=== PATIENT | female | born 1965 | race Caucasian/White ===

== ENCOUNTER 2017-08-07 20:00 | Emergency (ER) | payer BC ==
--- NOTE | 2017-08-07 20:16 | EDM.PDOC ---
ED HPI GENERAL MEDICAL PROBLEM - General Chief Complaint: Back Pain or Injury Stated Complaint: BACK PAIN Time Seen by Provider: 08/07/17 20:10 Source of Information: Reports: Patient. Denies: Old Records (No [facility] records available) History Limitations: Reports: No Limitations - History of Present Illness INITIAL COMMENTS - FREE TEXT/NARRATIVE: The patient was brought to the emergency room via private automobile by her daughter for evaluation of refractory persistent two-week history of 6/10 bilateral low back pain and spasms with radiation to the buttocks bilaterally and adductor regions bilaterally. She did have a possible mild twisting injury prior to onset of the above symptoms with no previous history of chronic significant low back pain. Symptoms have been refractory to heating pads, BenGay , and OTC NSAIDs with 400 mg of ibuprofen taken at noon today. The patient denies any chest pain/pressure, heart flutter, dizziness, orthostasis, orthopnea , diaphoresis, paresthesias, recent decreased exercise tolerance, or any other anginal-type symptoms. No recent history of abdominal pain, heartburn, nausea, diarrhea, melena, gross hematochezia, or any food intolerance, including fatty foods, etc.. She denies any colic, gross hematuria, or other UTI symptoms. Patient was apparently evaluated a couple weeks ago by her regular provider with questionable borderline UTI, however antibody therapy was given at that time. The patient also denies any recent fever, cough, wheezing, dyspnea, etc.. No history of previous significant fall, paresthesias, leg weakness, neurological deficits, etc. Onset: Unknown/Unsure Duration: Week(s): (As above), Constant, Getting Worse Location: Reports: Back, Lower Extremity, Left, Lower Extremity, Right, Radiates to (As above). 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 Denies: Glaucoma, Hard of Hearing, Macular Degeneration, Retinal Detachment Other HEENT History: Patient wears glasses Cardiovascular History: Reports: Arrhythmia, Other (See Below). Denies: Aneurysm, Blood Clots/VTE/DVT, CAD, Heart Failure, Heart Murmur, High Cholesterol, Hypertension, Syncope Other Cardiovascular History: Unknown type of previous benign arrhythmia Respiratory History: Reports: Intubation, Previous. Denies: Asthma, COPD, Intubation, Difficult, PE, Pneumothorax, Sleep Apnea Gastrointestinal History: Reports: GERD, Other (See Below). Denies: Celiac Disease, Cholelithiasis, Colon Polyp, Diverticulosis, Gastritis, GI Bleed, Hepatitis, Hiatal Hernia, Inflammatory Bowel Disease, Irritable Bowel Syndrome, Jaundice, Pancreatitis, PUD Genitourinary History: Denies: Acute Renal Failure, Chronic Renal Insuffiency, Renal Calculus, STD, Urinary Incontinence, UTI, Recurrent [employer] History: Reports: Dysfunctional Uterine Bleeding, Fibroids, , Spontaneous . Denies: Endometriosis : 6 Para: 3 LMP (Approximate): Other (See Below) Other OB/BYN History: Surgical menopause as below secondary to dysfunctional uterine bleeding. SAB 3 during first trimester with D&C 2 required. C- sections 3. Otherwise, full term deliveries without complications during pregnancies or deliveries. Fibrocystic breast disease of the negative biopsies as below Musculoskeletal History: Reports: Arthritis, Back Pain, Chronic, Osteoarthritis. Denies: Amputation, Fracture, Gout, Neck Pain, Chronic, Osteoporosis, RA, SLE Neurological History: Reports: Concussion, Headaches, Chronic, Head Trauma, Migraines, Other (See Below). Denies: Cerebral Aneurysms, CVA, MS, Neuropathy, Peripheral, Parkinson's, Seizure, TIA Other Neuro History: Head concussion the Psychiatric History: Reports: Anxiety, Depression, Other (See Below). Denies: Abuse, Victim of, ADD, ADHD, Addiction, Psych Hospitalization(s), PTSD, Suicide Attempt, Suicidal Ideation Other Psychiatric History: Seasonal affect disorder Endocrine/Metabolic History: Denies: Diabetes, Gestational, Diabetes, Type I, Diabetes, Type II, Diabetes Mellitus, Type 3c, Hypothyroidism, IDDM Hematologic History: Reports: None. Denies: Anemia, Blood Transfusion(s), Iron Deficiency Immunologic History: Reports: None. Denies: AIDS, HIV, SLE Oncologic (Cancer) History: Reports: None. Denies: Basal Cell Carcinoma, Breast , Cervix, Hodgkin's Lymphoma, Leukemia, Lymphoma, Malignant Melanoma, Non- Hodgkin's Lymphoma, Squamous Cell Carcinoma Dermatologic History: Reports: None. Denies: Eczema, Melanoma - Infectious Disease History Infectious Disease History: Reports: Chicken Pox, Measles, Mumps. Denies: C- Difficile, Meningitis, Mononucleosis, MRSA, Pertussis (Whooping Cough), Rheumatic Fever, Rubella, Scarlet Fever, Shingles, VRE - Past Surgical History Head Surgeries/Procedures: Reports: None HEENT Surgical History: Reports: Cataract Surgery, Oral Surgery, Other (See Below). Denies: Adenoidectomy, Eye Surgery, Laser Surgery, LASIK, Myringotomy w Tube(s), Naso-Sinus Surgery, Tonsillectomy Other HEENT Surgeries/Procedures: Bilateral cataract surgery at age 49. Multiple teeth extractions including complete upper dentures. [place] teeth extraction 4 in her 20s. Cardiovascular Surgical History: Reports: None. Denies: Varicose Respiratory Surgical History: Reports: None. Denies: Thoracentesis GI Surgical History: Reports: None, Colostomy. Denies: Appendectomy, Cholecystectomy, Colonoscopy, EGD, Hernia, Abdominal, Hernia, Inguinal, Hernia Repair/Other Female Surgical History: Reports: Breast Biopsy, D&C, Hysterectomy, Salpingo- Oophorectomy, Tubal Ligation, Other (See Below) Other Female Surgeries/Procedures: Previous history of 2 right and 2 left breast biopsies for benign disease in the . Bilateral tubal ligation in 1992. Subsequent complete hysterectomy and bilateral salpingo-oophorectomy at age 50 secondary to uterine fibroids. D&Cs 2 secondary to SABs as above. Endocrine Surgical History: Reports: None. Denies: Thyroid Biopsy Neurological Surgical History: Reports: None. Denies: C-Spine, Discectomy, Laminectomy, Lumbar Spine, Sacral Spine, Spinal Fusion, Thoracic Spine, Vertebroplasty Musculoskeletal Surgical History: Reports: None. Denies: Arthroscopic Knee, Arthroscopic Procedure, Carpal Tunnel, Ganglion Cyst, ORIF, Shoulder Surgery Oncologic Surgical History: Reports: None Dermatological Surgical History: Reports: None - Past Imaging History Past Imaging History: Reports: Event Monitor (In the ), Mammogram (Last in about 2007) Social & Family History - Tobacco Use Smoking Status *Q: Current Every Day Smoker Tobacco Use Within Last Twelve Months: Cigarettes Years of Tobacco use: 41 Packs/Tins Daily: 1 Packs/Tins Daily Comment: Smoking at age 11 with average is 12 packs per day Used Tobacco, but Quit: No Smoking Cessation Information Provided To Patient: Yes Second Hand Smoke Exposure: Yes Source of Second Hand Smoke Exposure: Daughter smokes Second Hand Smoke Education Provided: Yes - Caffeine Use Caffeine Use: Reports: Coffee (40 ounces per day), Soda (2 L per day). Denies: Energy Drinks, Tea - Alcohol Use Alcohol Use History: No Days Per Week of Alcohol Use: 0 (No current alcohol use with DWI at age 20. No history of alcohol abuse, treatment, etc.) Number of Drinks Per Day: 0 Total Drinks Per Week: 0 Alcohol Use in Last Twelve Months: No - Recreational Drug Use Recreational Drug Use: No Drug Use in Last 12 Months: No Recreational Drug Type: Denies: Amphetamines (Speed), Cocaine, Heroin, Inhalants (Glues, Solvents, Aerosols), LSD (Acid), Marijuana/Hashish, Methamphetamine, Morphine, Oxycodone - Living Situation & Occupation Living situation: Reports: with Family (Daughter, 2 grandchildren) Occupation: Employed ([employer]) ED ROS GENERAL - Review of Systems Review Of Systems: ROS reveals no pertinent complaints other than HPI. ED EXAM, GENERAL - Physical Exam Exam: See Below Exam Limited By: No Limitations General Appearance: Alert, WD/WN, No Apparent Distress Head: Atraumatic, Normocephalic Neck: Normal Inspection, Supple, Non-Tender, Full Range of Motion. No: Lymphadenopathy (L), Lymphadenopathy (R), Thyromegaly Respiratory/Chest: No Respiratory Distress, Lungs Clear, Normal Breath Sounds, No Accessory Muscle Use, Chest Non-Tender. No: Pleural Rub, Retractions Cardiovascular: Normal Peripheral Pulses, Regular Rate, Rhythm, No Edema, No Gallop, No JVD, No Murmur, No Rub. No: Gallop/S3, Gallop/S4, Friction Rub Peripheral Pulses: 2+: Radial (L), Radial (R) GI/Abdominal: Normal Bowel Sounds, Soft, Non-Tender, No Organomegaly, No Distention, No Abnormal Bruit, No Mass, Pelvis Stable. No: Guarding (Female) Exam: Deferred Rectal (Female) Exam: Deferred Back Exam: Decreased Range of Motion (Secondary to low back pain and muscle spasms), Muscle Spasm (As below), Paraspinal Tenderness (Moderate by palpation in the mid to lower lumbar regions bilaterally with additional moderate spasms in this area). No: CVA Tenderness (L), CVA Tenderness (R) Extremities: Normal Inspection, Normal Range of Motion, Non-Tender, No Pedal Edema, Normal Capillary Refill. No: Hiram's Sign Neurological: Alert, Oriented, CN II-XII Intact, Normal Cognition, Normal Gait, No Motor/Sensory Deficits Psychiatric: Normal Affect, Normal Mood Skin Exam: Warm, Dry, Intact, Normal Color, No Rash, Stud(s) (Left nasal stud), Tattoo(s) (Multiple including lumbar region). No: Diaphoretic, Ecchymosis, Wound/Incision Lymphatic: No Adenopathy Course - Vital Signs Last Recorded V/S: Vital Signs - 24 hr 08/07/17 20:30 Temperature [ 37.3 C Temporal] Pulse, 79 Peripheral [ Pulse Oximetry] Respiratory 16 Rate Blood Pressure 110/60 [Left Upper Arm ] O2 Sat by Pulse 98 Oximetry - Orders/Labs/Meds Orders: Active Orders 24 hr Category Date Time Status Lumbar Spine 2 or 3V [CR] Stat Exams 08/07/17 20:16 Ordered Obtain Past Medical Record [OM.PC] Routine Oth 08/07/17 20:16 Active Labs: None Meds: None - Radiology Interpretation Free Text/Narrative:: X-rays of the lumbar spine, 3 views, shows evidence of moderate osteoarthritic and osteoporotic changes with decreased lordosis in the lumbar spine but no evidence of fracture, dislocation, etc. Departure - Departure Time of Disposition: 21:00 Disposition: Home, Self-Care 01 Condition: Good Clinical Impression: Peptic reflux disease, Mixed anxiety depressive disorder, Tobacco abuse counseling, Osteoporosis, Allergic rhinitis Osteoarthritis Qualifiers: Osteoarthritis location: multiple joints Osteoarthritis type: primary Qualified Code(s): M15.0 - Primary generalized (osteo)arthritis Low back pain Qualifiers: Chronicity: acute Back pain laterality: bilateral Sciatica presence: with sciatica Sciatica laterality: bilateral sciatica Qualified Code(s): M54.42 - Lumbago with sciatica, left side; M54.41 - Lumbago with sciatica, right side - Discharge Information Instructions: Sciatica, [id number], Back Pain, Adult, [id number] Referrals: Nani Neely PA-C [Primary Care Provider] - Forms: ED Department Discharge Additional Instructions: 1. Followup with your regular provider in 10-14 days as directed. Further treatment and evaluation, including possible physical therapy, CT scan, etc. as discussed depending on your symptoms at that time 2. BenGay or equivalent, heating pad, and/or ice packs as directed. 3. Sedation precautions with Flexeril 4. Tylenol 650 mg by mouth every 4 hours and/or OTC ibuprofen 2-3 tabs by mouth every 6 hours with food as directed./needed. 5. Activity as tolerated/directed 6. OK to have planned chiropractic treatments 7. Strongly recommend update yearly examinations, including recommended DEXA scan, colonoscopy, mammogram, etc. DOMENICO as discussed 8. Stop all tobacco use DOMENICO as directed/per provided information and consider contacting Quit LIne, etc.. 9. Decrease caffeine intake as discussed - Problem List & Annotations (1) Low back pain SNOMED Code(s): 113232642 Code(s): M54.5 - LOW BACK PAIN Status: Acute Priority: High Annotation/ Comment:: The patient is currently on leave of absence from [facility] secondary to a in the family with no work excuse required by her history. Symptomatic relief with further evaluation and treatment as per discharge instructions. Activity restrictions, etc. discussed. Patient plans to go to her chiropractor later this week. Qualifiers: Chronicity: acute Back pain laterality: bilateral Sciatica presence: with sciatica Sciatica laterality: bilateral sciatica Qualified Code(s): M54.42 - Lumbago with sciatica, left side; M54.41 - Lumbago with sciatica, right side (2) Osteoarthritis SNOMED Code(s): 490005844 Code(s): M19.90 - UNSPECIFIED OSTEOARTHRITIS, UNSPECIFIED SITE Status: Chronic Priority: Medium Annotation/Comment:: Otherwise stable by history Qualifiers: Osteoarthritis location: multiple joints Osteoarthritis type: primary Qualified Code(s): M15.0 - Primary generalized (osteo)arthritis (3) Osteoporosis SNOMED Code(s): 46708518 Code(s): M81.0 - AGE-RELATED OSTEOPOROSIS W/O CURRENT PATHOLOGICAL FRACTURE Status: Chronic Priority: High Onset Date: 08/07/17 Annotation/Comment: : Newly diagnosed by x-rays today. DEXA scan strongly advisable DOMENICO with this extensively discussed with the patient and her daughter. Qualifiers: Osteoporosis type: unspecified Presence of current pathological fracture: unspecified Qualified Code(s): M81.0 - Age-related osteoporosis without current pathological fracture (4) Tobacco abuse counseling SNOMED Code(s): 102074008, [id number], [id number] Code(s): Z71.6 - TOBACCO ABUSE COUNSELING Status: Chronic Priority: Medium Annotation/Comment:: Stop all tobacco use DOMENICO as directed/per provided information and consider contacting Quit LIne, etc.. (5) Mixed anxiety depressive disorder SNOMED Code(s): 447484036 Code(s): F41.8 - OTHER SPECIFIED ANXIETY DISORDERS Status: Chronic Priority: Medium Annotation/Comment:: Stable by history with no current medical therapy (6) Peptic reflux disease SNOMED Code(s): 905764664 Code(s): K21.9 - GASTRO-ESOPHAGEAL REFLUX DISEASE WITHOUT ESOPHAGITIS Status: Chronic Priority: Medium Annotation/Comment:: Stable by history with no current medical therapy (7) Allergic rhinitis SNOMED Code(s): 71296580 Code(s): J30.9 - ALLERGIC RHINITIS, UNSPECIFIED Status: Chronic Priority : Medium Annotation/Comment:: No current medical therapy required Qualifiers: Allergic rhinitis trigger: unspecified Allergic rhinitis seasonality: seasonal Qualified Code(s): J30.2 - Other seasonal allergic rhinitis - Problem List Review Problem List Initiated/Reviewed/Updated: Yes - My Orders Last 24 Hours: My Active Orders 08/07/17 20:16 Lumbar Spine 2 or 3V [CR] Stat Obtain Past Medical Record [OM.PC] Routine - Assessment/Plan Last 24 Hours: My Active Orders 08/07/17 20:16 Lumbar Spine 2 or 3V [CR] Stat Obtain Past Medical Record [OM.PC] Routine Assessment:: As above Plan: As above. Extensive precautions were given to the patient, who is in agreement with the treatment plan. See Patient Instructions for further treatment and plan.
== END 2017-08-07 21:00 | disposition home or self-care (01) ==
LOC: LL.ED 20:00
DX: M54.42 Lumbago with sciatica, left side (principal); M54.41 Lumbago with sciatica, right side; F41.8 Other specified anxiety disorders; K21.9 Gastro-esophageal reflux disease without esophagitis; M81.0 Age-related osteoporosis without current pathological fracture; M15.0 Primary generalized (osteo)arthritis; E78.00 Pure hypercholesterolemia, unspecified; I10 Essential (primary) hypertension; I50.9 Heart failure, unspecified; F17.210 Nicotine dependence, cigarettes, uncomplicated; Z71.6 Tobacco abuse counseling
CPT/HCPCS: 72100; 99283

== ENCOUNTER 2017-09-24 04:27 | Emergency (ER) | payer BC, OTHER ==
[2017-09-24 05:22] LABS: CHLORIDE,CL 105 mmol/L (98-107); SODIUM,NA 141 mmol/L (136-145)
--- NOTE | 2017-09-24 05:30 | EDM.PDOC ---
ED HPI GENERAL MEDICAL PROBLEM - General Chief Complaint: Chest Pain Stated Complaint: @jorge l loading tailgates, cart tipped Time Seen by Provider: 09/24/17 05:12 Source of Information: Reports: Patient, Old Records ([facility] EMR. No paper hospital chart available.) History Limitations: Reports: No Limitations - History of Present Illness INITIAL COMMENTS - FREE TEXT/NARRATIVE: The patient was brought to the emergency room via transport vehicle from [facility] for evaluation of a chest wall contusion, which occurred at work at about 04:00 a.m. this morning. The patient was working with a cart carrying tailgates when the cart tipped over with one of the 150 pound tailgates falling directly on her chest with her right arm also pinned against the wall.. She was able to crawl out of the area of injury on her own however complains of 9-10/10 chest wall pain with only minimal right forearm discomfort. No history of head injury , change in mental status, loss of consciousness, neck/back pain, abdominal pain , dyspnea, etc.. The patient denies any other chest pain/pressure, heart flutter , dizziness, orthostasis, orthopnea, diaphoresis, paresthesias, recent decreased exercise tolerance, or any other anginal-type symptoms. No recent history of abdominal pain, heartburn, nausea, diarrhea, melena, gross hematochezia, or any food intolerance, including fatty foods, etc.. The patient also denies any recent fever, cough, wheezing, dyspnea, etc.. No history of recent headaches, visual changes, diplopia, or other change in neurological status. Onset: Today, Sudden Onset Date: 09/24/17 Onset Time: 04:00 Duration: Constant Location: Reports: Chest, Upper Extremity, Right. Denies: Head, Face, Neck, Abdomen, Back, Pelvis, Upper Extremity, Left, Lower Extremity, Left, Lower Extremity, Right, Radiates to Quality: Reports: Ache, Sharp Severity: Severe Improves with: Reports: Rest Worsens with: Reports: Movement (Inspiration) Context: Reports: Trauma Associated Symptoms: Reports: Chest Pain. Denies: Confusion, Cough, Diaphoresis , Fever/Chills, Headaches, Loss of Appetite, Malaise, Nausea/Vomiting, Seizure, Shortness of Breath, Syncope, Weakness Treatments EMBEDDED NURSE: Reports: Other (see below) (None) Chest Pain Score (Numeric/FACES): 10 - Related Data Allergies Allergy/AdvReac Type Severity Reaction Status Date / Time No Known Allergies Allergy Verified 09/24/17 04:34 Home Meds: Home Meds traZODone HCl [Trazodone HCl] 50 mg PO BEDTIME 08/07/17 [History] Past Medical History HEENT History: Reports: Allergic Rhinitis, Cataract, Impaired Vision, Other ( See Below). Denies: Glaucoma, Hard of Hearing, Macular Degeneration, Retinal Detachment Other HEENT History: Patient wears glasses Cardiovascular History: Reports: Arrhythmia, Other (See Below). Denies: Aneurysm, Blood Clots/VTE/DVT, CAD, Heart Murmur, High Cholesterol, Hypertension , UT, Syncope Other Cardiovascular History: Unknown type of previous benign arrhythmia. Chronic hypotension. Respiratory History: Reports: COPD, Intubation, Previous, Other (See Below). Denies: Asthma, Intubation, Difficult, PE, Pneumothorax, Sleep Apnea Other Respiratory History: COPD by chest x-ray with no current medical therapy Gastrointestinal History: Reports: GERD. Denies: Celiac Disease, Cholelithiasis , Chronic Constipation, Chronic Diarrhea, Colon Polyp, Fecal Incontinence, Gastritis, GI Bleed, Hepatitis, Hiatal Hernia, Inflammatory Bowel Disease, Irritable Bowel Syndrome, Jaundice, Pancreatitis, PUD Genitourinary History: Reports: None. Denies: Acute Renal Failure, Chronic Renal Insuffiency, Renal Calculus, Retention, Urinary, STD, Urinary Incontinence [employer] G History: Reports: Dysfunctional Uterine Bleeding, Fibroids, , Spontaneous . Denies: Endometriosis : 6 Para: 3 Other OB/BYN History: Surgical menopause as below secondary to dysfunctional uterine bleeding. SAB 3 during first trimester with D&C 2 required. C- sections 3. Otherwise, full term deliveries without complications during pregnancies or deliveries. Fibrocystic breast disease of the negative biopsies as below Musculoskeletal History: Reports: Arthritis, Back Pain, Chronic, Osteoarthritis. Denies: Amputation, Fracture, Gout, Neck Pain, Chronic, Osteoporosis, RA, SLE Neurological History: Reports: Concussion, Headaches, Chronic, Head Trauma, Migraines, Other (See Below). Denies: CVA, MS, Neuropathy, Peripheral, Parkinson's, Seizure, TIA Other Neuro History: Head concussion the Psychiatric History: Reports: Anxiety, Depression, Other (See Below). Denies: Abuse, Victim of, ADD, ADHD, Addiction, Psych Hospitalization(s), PTSD, Suicide Attempt, Suicidal Ideation Other Psychiatric History: Seasonal affect disorder Endocrine/Metabolic History: Denies: Diabetes, Gestational, Diabetes, Type I, Diabetes, Type II, Diabetes Mellitus, Type 3c, Hypothyroidism, IDDM, Osteoporosis Hematologic History: Reports: None. Denies: Anemia, Blood Transfusion(s), Iron Deficiency Immunologic History: Reports: None. Denies: AIDS, HIV, SLE Oncologic (Cancer) History: Reports: None. Denies: Basal Cell Carcinoma, Breast , Cervix, Hodgkin's Lymphoma, Leukemia, Lymphoma, Malignant Melanoma, Non- Hodgkin's Lymphoma, Ovarian, Squamous Cell Carcinoma, Uterine Dermatologic History: Reports: None. Denies: Eczema, Psoriasis - Infectious Disease History Infectious Disease History: Reports: Chicken Pox, Measles, Mumps. Denies: C- Difficile, Meningitis, Mononucleosis, MRSA, Pertussis (Whooping Cough), Rheumatic Fever, Rubella, Scarlet Fever, Shingles, TB, VRE - Past Surgical History Head Surgeries/Procedures: Reports: None HEENT Surgical History: Reports: Cataract Surgery, Oral Surgery, Other (See Below). Denies: Adenoidectomy, Eye Surgery, Laser Surgery, LASIK, Myringotomy w Tube(s), Naso-Sinus Surgery, Tonsillectomy Other HEENT Surgeries/Procedures: Bilateral cataract surgery at age 49. Multiple teeth extractions including complete upper dentures. [place] teeth extraction 4 in her 20s. Cardiovascular Surgical History: Reports: None. Denies: Varicose Respiratory Surgical History: Reports: None. Denies: Thoracentesis GI Surgical History: Reports: None. Denies: Appendectomy, Cholecystectomy, Colonoscopy, EGD, Hernia, Inguinal, Hernia Repair/Other, Polypectomy Female Surgical History: Reports: Breast Biopsy, Section, D&C, Hysterectomy, Salpingo-Oophorectomy, Tubal Ligation, Other (See Below) Other Female Surgeries/Procedures: Previous history of 2 right and 2 left breast biopsies for benign disease in the . Bilateral tubal ligation in 1992. Subsequent complete hysterectomy and bilateral salpingo-oophorectomy at age 50 secondary to uterine fibroids. D&Cs 2 secondary to SABs and C-sections 3 as above. Endocrine Surgical History: Reports: None. Denies: Thyroid Biopsy Neurological Surgical History: Reports: None. Denies: C-Spine, Discectomy, Laminectomy, Lumbar Spine, Sacral Spine, Spinal Fusion, Thoracic Spine, Vertebroplasty Musculoskeletal Surgical History: Reports: None. Denies: Arthroscopic Procedure , Carpal Tunnel, Ganglion Cyst, Joint Replacement, Nerve Relocation, ORIF, Shoulder Surgery Oncologic Surgical History: Reports: Biopsy of Breast, Other (See Below) Other Oncologic Surgeries/Procedures: Benign disease as above Dermatological Surgical History: Reports: None - Past Imaging History Past Imaging History: Reports: Event Monitor (In the ), Mammogram (Last in about 2007) Social & Family History - Family History Oncologic: Reports: Lung, Other (See Below) Other Oncologic Family History: Mother with fatal small cell carcinoma of the lung at age 69 with history of tobacco use - Tobacco Use Smoking Status *Q: Current Every Day Smoker Tobacco Use Within Last Twelve Months: Cigarettes Years of Tobacco use: 41 Packs/Tins Daily: 0.5 Packs/Tins Daily Comment: She started smoking at age 11 with average use of 12 packs per day Used Tobacco, but Quit: No Smoking Cessation Information Provided To Patient: Yes Second Hand Smoke Exposure: Yes Source of Second Hand Smoke Exposure: Daughter smokes Second Hand Smoke Education Provided: Yes - Caffeine Use Caffeine Use: Reports: Coffee (40 ounces per day), Soda (2 L per day). Denies: Energy Drinks, Tea - Alcohol Use Alcohol Use History: Yes Days Per Week of Alcohol Use: 0 Number of Drinks Per Day: 0 Number of Drinks Per Day Comment: DWI at age 20 with no current alcohol use or history of alcohol abuse, treatment, etc. Total Drinks Per Week: 0 Alcohol Use in Last Twelve Months: No - Recreational Drug Use Recreational Drug Use: No Drug Use in Last 12 Months: No Recreational Drug Type: Denies: Amphetamines (Speed), Cocaine, Heroin, Inhalants (Glues, Solvents, Aerosols), LSD (Acid), Marijuana/Hashish, Methamphetamine - Living Situation & Occupation Living situation: Reports: (2017), with Family (Daughter, 2 grandchildren) Occupation: Employed ([employer]) ED ROS GENERAL - Review of Systems Review Of Systems: ROS reveals no pertinent complaints other than HPI. ED EXAM, GENERAL - Physical Exam Exam: See Below Exam Limited By: No Limitations General Appearance: Alert, WD/WN, No Apparent Distress Eye Exam: Bilateral Eye: EOMI, Normal Inspection (No nystagmus. Patient wearing glasses), PERRL Ears: Normal External Exam, Normal Canal, Hearing Grossly Normal, Normal TMs Nose: Normal Inspection, Normal Mucosa, No Blood Throat/Mouth: Normal Inspection, Normal Lips, Normal Gums, Normal Oropharynx, Normal Voice, No Airway Compromise. No: Normal Teeth (Complete upper dentures) , Dysphagia, Perioral Cyanosis Head: Atraumatic, Normocephalic. No: Facial Swelling, Facial Tenderness, Sinus Tenderness Neck: Normal Inspection, Supple, Non-Tender, Full Range of Motion. No: Lymphadenopathy (L), Lymphadenopathy (R), Thyromegaly Respiratory/Chest: No Respiratory Distress, Lungs Clear, Normal Breath Sounds, No Accessory Muscle Use. No: Chest Non-Tender (Mild to moderate Midsternal patient. The crepitation or deformity), Pleural Rub, Retractions Cardiovascular: Normal Peripheral Pulses, Regular Rate, Rhythm, No Edema, No Gallop, No JVD, No Murmur, No Rub Peripheral Pulses: 2+: Radial (L), Radial (R) GI/Abdominal: Normal Bowel Sounds, Soft, Non-Tender, No Organomegaly, No Distention, No Abnormal Bruit, No Mass, Pelvis Stable (Female) Exam: Deferred Rectal (Female) Exam: Deferred Back Exam: Normal Inspection, Full Range of Motion. No: CVA Tenderness (L), CVA Tenderness (R), Muscle Spasm Extremities: Normal Inspection, Normal Range of Motion, Non-Tender, No Pedal Edema, Normal Capillary Refill, Other (Right forearm shows no evidence of injury with no significant localized tenderness, etc.). No: Hiram's Sign Neurological: Alert, Oriented, CN II-XII Intact, Normal Cognition, Normal Gait, No Motor/Sensory Deficits Psychiatric: Anxious (Borderline), Depressed Mood (Mild to moderate and somewhat confrontational) Skin Exam: Stud(s) (Multiple), Tattoo(s) (Multiple) Lymphatic: No Adenopathy EKG INTERPRETATION EKG Date: 09/24/17 Time: 04:51 Rhythm: NSR Rate (Beats/Min): 85 [place]: Normal P-Wave: Present (Pulmonary hypertension by EKG) QRS: Normal (QRS interval of 0.08 seconds with T-wave inversion in lead V1) QT: Normal VA/PQ Interval: 0.13 seconds with no delta waves noted Comparison: NA - No Prior EKG EKG Interpretation Comments: 1. No acute ischemic changes 2. Short VA interval 3. Pulmonary hypertension by EKG Course - Vital Signs Last Recorded V/S: Last Vital Signs Temp 37.2 C 09/24/17 05:52 Pulse 73 09/24/17 06:03 Resp 14 09/24/17 06:03 BP 112/65 09/24/17 06:03 Pulse Ox 100 09/24/17 06:03 Vital Signs - 24 hr 09/24/17 09/24/17 05:52 06:03 Temperature [ 37.2 C Temporal] Pulse, 66 73 Peripheral [ Left Pulse Oximetry] Respiratory 14 14 Rate Blood Pressure 117/56 L 112/65 [Left Upper Arm ] O2 Sat by Pulse 100 100 Oximetry See Trauma Sheet - Orders/Labs/Meds Orders: Active Orders 24 hr Category Date Time Status Chest 1V Frontal [CR] Routine Exams 09/24/17 Taken Forearm 2V Rt [CR] Stat Exams 09/24/17 05:20 Ordered Sternum Min 2V [CR] Stat Exams 09/24/17 05:20 Ordered Labs: Laboratory Tests 09/24/17 09/24/17 09/24/17 Range/Units 04:55 04:55 04:55 WBC 5.3 (4.0-10.2) K/uL RBC 4.01 (3.77-5.09) M/uL Hgb 13.0 (11.7-15.5) g/dL Hct 38.5 (34.0-46.0) % MCV 96.0 (84.0-98.0) fL MCH 32.4 (28.2-33.3) pg MCHC 33.8 (31.7-36.0) g/dL RDW 12.3 (11.2-14.1) % Plt Count 200 (150-350) K/uL Neut % (Auto) 48.3 (45.0-80.0) % Lymph % (Auto) 34.6 (10.0-50.0) % Morrison % (Auto) 13.7 (2.0-14.0) % Eos % (Auto) 2.8 (0.0-5.0) % Baso % (Auto) 0.6 (0.0-2.0) % Neut # (Auto) 2.57 (1.40-7.00) K/uL Lymph # (Auto) 1.84 (0.50-3.50) K/uL Morrison # (Auto) 0.73 (0.00-1.00) K/uL Eos # (Auto) 0.15 (0.00-0.50) K/uL Baso # (Auto) 0.03 (0.00-0.20) K/uL Sodium 141 (136-145) mmol/L Potassium 3.7 (3.5-5.1) mmol/L Chloride 105 (98-107) mmol/L Carbon Dioxide 26.9 (21.0-32.0) mmol/L BUN 15 (7-18) mg/dL Creatinine 0.65 (0.51-1.17) mg/dL Est Cr Clr Drug Dosing TNP Estimated GFR (MDRD) > 60 mL/min Glucose 83 (74-106) mg/dL Lactic Acid (0.4-2.0) mmol/L Calcium 9.0 (8.5-10.1) mg/dL Total Bilirubin 0.3 (0.2-1.0) mg/dL AST 20 (15-37) U/L ALT 18 (12-78) U/L Alkaline Phosphatase 119 H (46-116) IU/L Creatine Kinase 246 (26-308) U/L Creatine Kinase Index 0.7 (0.0-2.5) % CK-MB (CK-2) 1.60 (0.00-3.60) ng/mL Troponin I 0.000 (0.000-0.056) ng/mL Total Protein 7.6 (6.4-8.2) g/dL Albumin 3.8 (3.4-5.0) g/dL 09/24/17 Range/Units 04:55 WBC (4.0-10.2) K/uL RBC (3.77-5.09) M/uL Hgb (11.7-15.5) g/dL Hct (34.0-46.0) % MCV (84.0-98.0) fL MCH (28.2-33.3) pg MCHC (31.7-36.0) g/dL RDW (11.2-14.1) % Plt Count (150-350) K/uL Neut % (Auto) (45.0-80.0) % Lymph % (Auto) (10.0-50.0) % Morrison % (Auto) (2.0-14.0) % Eos % (Auto) (0.0-5.0) % Baso % (Auto) (0.0-2.0) % Neut # (Auto) (1.40-7.00) K/uL Lymph # (Auto) (0.50-3.50) K/uL Morrison # (Auto) (0.00-1.00) K/uL Eos # (Auto) (0.00-0.50) K/uL Baso # (Auto) (0.00-0.20) K/uL Sodium (136-145) mmol/L Potassium (3.5-5.1) mmol/L Chloride (98-107) mmol/L Carbon Dioxide (21.0-32.0) mmol/L BUN (7-18) mg/dL Creatinine (0.51-1.17) mg/dL Est Cr Clr Drug Dosing Estimated GFR (MDRD) mL/min Glucose (74-106) mg/dL Lactic Acid 1.3 (0.4-2.0) mmol/L Calcium (8.5-10.1) mg/dL Total Bilirubin (0.2-1.0) mg/dL AST (15-37) U/L ALT (12-78) U/L Alkaline Phosphatase (46-116) IU/L Creatine Kinase (26-308) U/L Creatine Kinase Index (0.0-2.5) % CK-MB (CK-2) (0.00-3.60) ng/mL Troponin I (0.000-0.056) ng/mL Total Protein (6.4-8.2) g/dL Albumin (3.4-5.0) g/dL Meds: None - Radiology Interpretation Free Text/Narrative:: Chest X-ray, portable, reveals stable unspecific right-sided pulmonary changes with radiologist recommending future CT scan of the chest for evaluation as a screen for pulmonary nodules. No acute changes present X-rays of the sternum, complete, shows no evidence of acute injury as per radiology report NOTE: Stat telephone reports requested from the radiology department at [facility] in [place] were not received with written reports received by fax X-rays of the right forearm, 2 views, shows no evidence of fracture. Departure - Departure Time of Disposition: 06:20 Disposition: Home, Self-Care 01 Condition: Good Clinical Impression: Trauma, Chest wall pain, Hypotension, Osteoarthritis, Peptic reflux disease, Mixed anxiety depressive disorder, Tobacco abuse counseling, Contusion, COPD ( chronic obstructive pulmonary disease) - Discharge Information Instructions: Chest Wall Pain, Hyoo-fv-Abab Referrals: Nani Neely PA-C [Primary Care Provider] - Forms: ED Department Discharge Additional Instructions: 1. Follow up with your regular provider in 10-14 days as needed, if symptoms persist. Bring these discharge instructions with you to that visit.. 2. Tylenol 650 mg by mouth every 4 hours and/or OTC ibuprofen 2-3 tabs by mouth every 6 hours with food as directed./needed. 3. BenGay or equivalent, heating pad, and/or ice packs as directed. 4. Stop all tobacco use DOMENICO as directed/per provided information and consider contacting Quit LIne, etc.. 5. Per recommendations from the radiologist and secondary to family history of a lung cancer and your history of tobacco abuse discuss with your regular provider DOMENICO recommended CT of the chest 6. Consider lung function tests, PFTs secondary to tobacco use history 7. Discuss with your regular provider update your routine health care including recommended colonoscopy, etc. 8. Immediately after this visit verify that your cellular telephone's voicemail has been activated and is empty. Also verify that your home telephone 's answering machine is operating properly and has space to receive messages. Note that it is sometimes necessary for us to be able to contact you at a later date to discuss your medical care. 9. Work excuse- See Form - Problem List & Annotations (1) Trauma SNOMED Code(s): 536715733 Code(s): T14.90XA - INJURY, UNSPECIFIED, INITIAL ENCOUNTER Status: Acute Priority: High Onset Date: 09/24/17 Annotation/Comment:: Trauma code called by emergency room nurse upon patient's arrival to the emergency room secondary to mechanism of injury. On-call physician could not be initially reached with E- med ordering the initial evaluations, including blood work, cardiac monitoring, portable chest x-ray, etc.. No evidence of cardiac arrhythmia by monitoring with no EKG changes, elevated cardiac enzymes, etc. Mostly sternal and minimal right forearm contusions. [employer] work excuse and Workmen's Compensation forms were completed. Symptomatic relief as per discharge instructions. Patient was some what confrontational refusing recommended work restrictions and insisting to go back to work after only 1 day off. (2) Chest wall pain SNOMED Code(s): 461295739 Code(s): R07.89 - OTHER CHEST PAIN Status: Acute Priority: High Onset Date: 09/24/17 Annotation/Comment:: Chest wall/Sternal pain secondary to contusion as above. Note negative x-rays. Symptomatic relief as per discharge instructions. (3) Contusion SNOMED Code(s): 460254585 Code(s): T14.8XXA - OTHER INJURY OF UNSPECIFIED BODY REGION, INITIAL ENCOUNTER Status: Acute Priority: High Onset Date: 09/24/17 Annotation/ Comment:: Minor right forearm contusion. Negative x-rays as above. Symptomatic relief as per discharge instructions. Qualifiers: Encounter type: initial encounter Contusion area: forearm Laterality: right Qualified Code(s): S50.11XA - Contusion of right forearm, initial encounter (4) Hypotension SNOMED Code(s): 30622203 Code(s): I95.9 - HYPOTENSION, UNSPECIFIED Status: Chronic Priority: Medium Annotation/Comment:: Chronic hypotension by patient history. Patient given a 1 L IV bolus of normal saline per orders from E-med with improved blood pressures prior to discharge. No evidence of significant bleeding, trauma, etc. as above. Qualifiers: Hypotension type: idiopathic hypotension Qualified Code(s): I95.0 - Idiopathic hypotension (5) COPD (chronic obstructive pulmonary disease) SNOMED Code(s): 70047678 Code(s): J44.9 - CHRONIC OBSTRUCTIVE PULMONARY DISEASE, UNSPECIFIED Status : Chronic Priority: Medium Annotation/Comment:: COPD by chest x-ray. PFTs recommended as per discharge instructions. No recent fever or bronchitic type symptoms. CT of the chest also recommended by the radiologist as per discharge instructions, however the patient is very resistant to this suggestion. Qualifiers: COPD type: emphysema Emphysema type: panlobular Qualified Code(s): J43.1 - Panlobular emphysema (6) Mixed anxiety depressive disorder SNOMED Code(s): 771545454 Code(s): F41.8 - OTHER SPECIFIED ANXIETY DISORDERS Status: Chronic Priority: Medium Annotation/Comment:: Stable by history however moderate control based on today's examination. Note recent of her mother with emotional support provided. Continue to observe closely by her regular provider with no current evidence of suicidal ideation, etc.. Patient somewhat confrontational concerning recommended update of her preventive health care, including colonoscopy, mammogram, PFTs, CT scan of the chest as above, etc. (7) Osteoarthritis SNOMED Code(s): 133543775 Code(s): M19.90 - UNSPECIFIED OSTEOARTHRITIS, UNSPECIFIED SITE Status: Chronic Priority: Medium Annotation/Comment:: Otherwise stable by history Qualifiers: Osteoarthritis location: multiple joints Osteoarthritis type: primary Qualified Code(s): M15.0 - Primary generalized (osteo)arthritis (8) Peptic reflux disease SNOMED Code(s): 839079963 Code(s): K21.9 - GASTRO-ESOPHAGEAL REFLUX DISEASE WITHOUT ESOPHAGITIS Status: Chronic Priority: Medium Annotation/Comment:: Stable by history with no current medical therapy (9) Tobacco abuse counseling SNOMED Code(s): 730983842, 169351270, 739803443 Code(s): Z71.6 - TOBACCO ABUSE COUNSELING Status: Chronic Priority: Medium Annotation/Comment:: Stop all tobacco use DOMENICO as directed/per provided information and consider contacting Quit LIne, etc.. Patient congratulated about trying to quit smoking. - Problem List Review Problem List Initiated/Reviewed/Updated: Yes - My Orders Last 24 Hours: My Active Orders 09/24/17 05:20 Forearm 2V Rt [CR] Stat Sternum Min 2V [CR] Stat - Assessment/Plan Last 24 Hours: My Active Orders 09/24/17 05:20 Forearm 2V Rt [CR] Stat Sternum Min 2V [CR] Stat Assessment:: As above Plan: As above. Extensive precautions were given to the patient, who is in agreement with the treatment plan. See Patient Instructions for further treatment and plan.
== END 2017-09-24 06:20 | disposition home or self-care (01) ==
LOC: LL.ED 04:27
DX: S20.211A Contusion of right front wall of thorax, initial encounter (principal); J44.9 Chronic obstructive pulmonary disease, unspecified; I95.9 Hypotension, unspecified; F41.8 Other specified anxiety disorders; M19.90 Unspecified osteoarthritis, unspecified site; K21.9 Gastro-esophageal reflux disease without esophagitis; W22.8XXA Striking against or struck by other objects, initial encounter; Z71.6 Tobacco abuse counseling; W20.8XXA Other cause of strike by thrown, projected or falling object, initial encounter
CPT/HCPCS: 36415; 71045; 71120; 73090-RT; 80053; 82550; 82553; 83605; 84484; 85025; 93005; 96360; 99285

== ENCOUNTER 2018-09-12 20:43 | Emergency (ER) | payer BC ==
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
[2018-09-12] MEDS ORDERED: Sodium Chloride 0.9% 10 ML Syringe FLUSH PRN (20:57)
[2018-09-12] MEDS ORDERED: Budesonide 0.5 MG/2 ML Neb Susp NEB ONE (20:57)
[2018-09-12] MEDS ORDERED: Albuterol/Ipratropium 3.0-0.5 MG/3 ML Neb Soln NEB ONE (20:57)
[2018-09-12 21:29] LABS: CHLORIDE,CL 106 mmol/L (98-107); SODIUM,NA 142 mmol/L (136-145)
[2018-09-12] MEDS ORDERED: methylPREDNISolone Acetate 80 MG/ML SDV IM ONE (22:51)
[2018-09-12] MEDS ORDERED: Dextromethorphan/guaiFENesin 600-30 MG Tab.ER PO ONE (22:51)
== END 2018-09-12 23:35 | disposition home or self-care (01) ==
LOC: LL.ED 20:43
DX: R04.0 Epistaxis (principal); J44.9 Chronic obstructive pulmonary disease, unspecified; J30.9 Allergic rhinitis, unspecified; N28.9 Disorder of kidney and ureter, unspecified; F41.8 Other specified anxiety disorders; K21.9 Gastro-esophageal reflux disease without esophagitis; Z71.6 Tobacco abuse counseling; Z79.899 Other long term (current) drug therapy
CPT/HCPCS: 30901; 30905; 36000; 36415; 71046; 80053; 83605; 83735; 85025; 85610; 85730; 87070; 87077; 87804; 96372; 99285-25; A9270-GY; J1040; J7620-GY

== ENCOUNTER 2022-11-15 07:36 | Emergency (ER) | payer BC ==
[2022-11-15] MEDS ORDERED: Sodium Chloride 0.9% 10 ML Syringe FLUSH PRN (08:11)
[2022-11-15 08:26] LABS: BASOPHILS ABSOLUTE AUTO 0.03 K/uL (0.00-0.20); BASOPHILS PERCENT AUTO 0.5 % (0.0-2.0); EOSINOPHILS ABSOLUTE AUTO 0.14 K/uL (0.00-0.50); EOSINOPHILS PERCENT AUTO 2.3 % (0.0-5.0); HEMATOCRIT 36.2 % (34.0-46.0); HEMOGLOBIN 12.1 g/dL (11.7-15.5); LYMPHOCYTES ABSOLUTE AUTO 1.82 K/uL (0.50-3.50); LYMPHOCYTES PERCENT AUTO 30.5 % (10.0-50.0); MEAN CORPUSCULAR HGB CONC 33.4 g/dL (31.7-36.0); MEAN CORPUSCULAR VOLUME 95.8 fL (84.0-98.0); MONOCYTES ABSOLUTE AUTO 0.72 K/uL (0.00-1.00); MONOCYTES PERCENT AUTO 12.1 % (2.0-14.0); NEUTROPHILS ABSOLUTE AUTO 3.26 K/uL (1.40-7.00); NEUTROPHILS PERCENT AUTO 54.6 % (45.0-80.0); PLATELET COUNT,PLT 189 K/uL (150-350); RED BLOOD CELL COUNT 3.78 M/uL (3.77-5.09); RED CELL DISTRIBUTION WIDTH 12.4 % (11.2-14.1)
[2022-11-15 08:54] LABS: ALBUMIN 3.9 g/dL (3.4-5.0); ANION GAP 9.3 meq/L (7-15); BILIRUBIN TOTAL 0.5 mg/dL (0.2-1.0); CALCIUM 8.6 mg/dL (8.5-10.1); CARBON DIOXIDE,CO2 27.7 mmol/L (21.0-32.0); CREATININE 0.79 mg/dL (0.51-1.17); EST CRCL DRUG DOSING (CG) 68.66 mL/min; POTASSIUM,K 3.7 mmol/L (3.5-5.1); PROTEIN TOTAL,TP 7.2 g/dL (6.4-8.2)
[2022-11-15 09:24] LABS: MAGNESIUM 1.8 mg/dL (1.8-2.4)
[2022-11-15 10:58] VITALS: BP 127/67; PULSE 83
== END 2022-11-15 10:11 | disposition left against medical advice (07) ==
LOC: LL.ED 07:36
DX: R07.89 Other chest pain (principal); J44.9 Chronic obstructive pulmonary disease, unspecified
CPT/HCPCS: 36415; 71046; 80053; 83735; 83880; 84484; 85025; 85379; 85652; 86140; 93005; 93010; 99284; 99285